=== PATIENT | female | born 1985 | race Caucasian/White ===

== ENCOUNTER 2017-12-27 11:11 | Outpatient (CLI) | END 2017-12-27 11:12 | disposition short-term general hospital (02) | LOC: AMBL 11:11 | PROVIDERS: ATTEND Internal Medicine | DX: L76.82 Other postprocedural complications of skin and subcutaneous tissue (principal); R60.0 Localized edema; Z98.890 Other specified postprocedural states ==

== ENCOUNTER 2018-05-02 16:44 | Emergency (ER) ==
[2018-05-02 16:54] VITALS: BP 131/79; TEMP 97.1; BMI 38.4
--- NOTE | 2018-05-02 17:03 | ED.PDOC ---
General ED Provider: Dr. ROMA FUENTES Chief Complaint: Back Pain Stated Complaint: LOW BACK PAIN Time Seen by Physician: 17:00 (SEEN WITH MAKENZIE AT ALL TIMES ) Mode of Arrival: Walk-In Information Source: Patient Exam Limitations: No limitations Primary Care Provider: MARINA MCCOY Nursing and Triage Documentation Reviewed and Agree: Yes Does patient meet sepsis criteria?: No System Inflammatory Response Syndrome: Not Applicable Sepsis Protocol: For patient's 13 years and over: Temp is 96.8 and below OR 101 and greater Pulse >90 BPM Resp >20/minute Acutely Altered Mental Status Are patient's symptoms suggestive of a new infection, such as: -Pneumonia -Skin, Soft Tissue -Endocarditis -UTI -Bone, Joint Infection -Implantable Device -Acute Abdominal Infection -Wound Infection -Meningitis -Blood Stream Catheter Infection -Unknown Musculoskeletal Complaint Exam - Back Pain Complaint/Exam Mechanism of Injury: Reports: No known trauma (MOVING FURNITURE ) Onset/Duration: 2 DAYS Symptoms Are: Still present Timing: Intermittent Episodes Lasting: Days Initial Severity: Moderate Current Severity: Moderate Location: Reports: Discrete Character: Reports: Aching Aggravating: Reports: Movements, Lifting, Bending, Walking Alleviating: Reports: Rest, Position Associated Signs and Symptoms: Denies: Swelling, Redness, Bruising, Fever, Weakness, Numbness, Tingling, Abdominal pain, Flank pain, Bladder incontinence, Bowel incontinence, Weight loss, Pain with weight bearing Related History: Reports: Similar episode TAD Risk Factors: Reports: None AAA Risk Factors: Reports: None Cauda Equina Risk Factors: Reports: None Epidural Abcess Risk Factors: Reports: None Related Surgical History: Reports: None Focal Tenderness: No Paraspinal Muscle Tenderness: No Paraspinal Muscle Spasm: No Scoliosis: No Lordosis: No Kyphosis: No SLR Test: Right Negative, Left Negative Hip Motion Testing Pain: Right Negative, Left Negative Focal Weakness: Present: None Focal Sensory Loss: Present: None Review of Systems - Review Of Systems Constitutional: Reports: No symptoms Eyes: Reports: No symptoms Ears, Nose, Mouth, Throat: Reports: No symptoms Respiratory: Reports: No symptoms Cardiac: Reports: No symptoms GI: Reports: No symptoms : Reports: No symptoms Musculoskeletal: Reports: Back pain Skin: Reports: No symptoms Neurological: Reports: No symptoms Endocrine: Reports: No symptoms Hematologic/Lymphatic: Reports: No symptoms All Other Systems: Reviewed and Negative Past Medical History - Past Medical History Previously Healthy: Yes Endocrine: Reports: None Cardiovascular: Reports: None Respiratory: Reports: None Hematological: Reports: None Gastrointestinal: Reports: None Genitourinary: Reports: None Neuro/Psych: Reports: None Musculoskeletal: Reports: None Cancer: Reports: None Last Menstrual Period: last week - Surgical History General Surgical History: Reports: None - Family History Family History: Reports: None - Social History Smoking Status: Never smoker Hx Substance Use: No Alcohol Screening: None Physical Exam - Physical Exam Appearance: Well-appearing, No pain distress, Well-nourished Eyes: LOPEZ, EOMI, Conjunctiva clear ENT: Ears normal, Nose normal, Oropharynx normal Respiratory: Airway patent, Breath sounds clear, Breath sounds equal, Respirations nonlabored Cardiovascular: RRR, Pulses normal, No rub, No murmur GI/: Soft, Nontender, No masses, Bowel sounds normal, No Organomegaly Musculoskeletal: Normal strength, ROM intact, No edema, No calf tenderness Skin: Warm, Dry, Normal color Neurological: Sensation intact, Motor intact, Reflexes intact, Cranial nerves intact, Alert, Oriented Psychiatric: Affect appropriate, Mood appropriate Critical Care Note - Critical Care Note Total Time (mins): 0 Course - Course Vital Signs: Temp Pulse Resp BP Pulse Ox 05/02/18 16:44 97.1 F L 61 20 131/79 98 Departure - Departure Time of Disposition: 17:02 Disposition: HOME SELF-CARE Discharge Problem: Low back pain Qualifiers: Chronicity: acute Back pain laterality: bilateral Sciatica presence: without sciatica Qualified Code(s): M54.5 - Low back pain Instructions: Back Pain (ED) Condition: Good Pt referred to PMD for follow-up: Yes IPMP verified?: No Additional Instructions: Please call your Family Physician as soon as possible to schedule a follow-up appointment. Prescriptions: Hydrocodone/Acetaminophen [[place] 10-325 Tablet] 1 each PO Q8HR #12 tablet Allergies/Adverse Reactions: Allergies No Known Allergies Allergy (Unverified 04/20/18 14:11) Home Medications: Ambulatory Orders Hydrocodone/Acetaminophen [[place] 10-325 Tablet] 1 each PO Q8HR #12 tablet
== END 2018-05-02 17:20 | disposition home or self-care (01) ==
LOC: ED 16:44
DX: M54.5 Low back pain (principal); X50.1XXA Overexertion from prolonged static or awkward postures, initial encounter
CPT/HCPCS: 99282

== ENCOUNTER 2018-05-07 07:04 | Outpatient (CLI) ==
--- NOTE | 2018-05-07 08:25 | MRI ---
EXAM: Lumbar spine MRI without contrast. HISTORY: Low back pain. COMPARISON: None. TECHNIQUE: Multiplanar, multisequence MR images were acquired of the lumbar spine without contrast. FINDINGS: The conus medullaris ends at L1 and has normal signal intensity. Five non-rib bearing lum bar vertebra are present. The vertebra are normal in height, AP alignment and intrinsic bone marrow signal. At L4-5, there is mild disc space narrowing, disc desiccation and mild irregularity along th e right lateral endplates, greatest involving the right L4 inferior endplate with two small developin g Schmorl's nodes with mixed modic type 1 and type 2 endplate changes. There is minor disc space mary rowing and central disc desiccation at L3-4. The partially visualized liver, spleen and kidneys are unremarkable. There are no paravertebral mass es. L1-2: The intervertebral disc is normal. L2-3: The intervertebral disc is normal. L3-4: There is a minor posterior disc bulge and endplate osteophytes with a small central annular te ar. This minimally effaces the ventral thecal sac without central canal stenosis. Neural foramina ar e patent. L4-5: There is a mild disc bulge and small central disc protrusion and annular tear that effaces the ventral thecal sac and minimally narrows the inferior neural foramina bilaterally. Minor bilateral facet arthropathy and mild ligamentum flavum hypertrophy is present. There is mild spinal stenosis a nd mild right and minor left neural foraminal stenosis. AP diameter of the thecal sac is 9.3 mm. L5-S1: There is a minor posterior disc bulge without central canal stenosis. Neural foramina are pa tent. IMPRESSION: 1. Minor lumbar degenerative spondylosis and mild spinal stenosis at L4-5. 2. Small central disc protrusion L4-5.
== END 2018-05-07 07:05 | disposition home or self-care (01) ==
LOC: RAD 07:04
PROVIDERS: ATTEND Nurse Practitioner Family
DX: Z00.00 Encounter for general adult medical examination without abnormal findings (principal); M54.5 Low back pain; M54.40 Lumbago with sciatica, unspecified side
CPT/HCPCS: 36415; 80053; 80061; 84443; 85025

== ENCOUNTER 2018-07-19 10:35 | Outpatient (CLI) ==
[2018-07-19 09:39] VITALS: BMI 38.4
== END 2018-07-19 10:36 | disposition home or self-care (01) ==
LOC: RHC-LAB 10:35
PROVIDERS: ATTEND Nurse Practitioner Family
DX: Z79.899 Other long term (current) drug therapy (principal)
CPT/HCPCS: 80306

== ENCOUNTER 2018-09-18 10:19 | Outpatient (CLI) | END 2018-09-18 10:20 | disposition home or self-care (01) | LOC: RHC-LAB 10:19 | PROVIDERS: ATTEND Nurse Practitioner Family | DX: J02.9 Acute pharyngitis, unspecified (principal); R50.9 Fever, unspecified | CPT/HCPCS: 87502; 87651 ==

== ENCOUNTER 2018-11-23 14:07 | Outpatient (CLI) | payer OTHER | END 2018-11-23 14:08 | disposition home or self-care (01) | LOC: RHC-LAB 14:07 | PROVIDERS: ATTEND Nurse Practitioner Family | DX: R10.11 Right upper quadrant pain (principal) | CPT/HCPCS: 36415; 80053; 81001; 83690; 85027 ==

== ENCOUNTER 2018-11-27 08:10 | Outpatient (CLI) | payer OTHER ==
--- NOTE | 2018-11-27 09:32 | US ---
EXAM: Limited abdominal ultrasound. History: Right upper quadrant abdominal pain. Technique: Multiple sonographic images through the abdomen were obtained. Color duplex Doppler was used to interrogate vascular flow. Findings: Visualized pancreas is unremarkable. The liver is not enlarged. No focal liver lesions i dentified sonographically. There is antegrade flow within the main portal vein. No abdominal ascite s. No shadowing gallstones. Gallbladder wall is not thickened. Common bile duct measures 0.4 cm in caliber. Limited visualization of the right kidney demonstrates no evidence for hydronephrosis. Impression: Unremarkable exam
== END 2018-11-27 08:11 | disposition home or self-care (01) ==
LOC: RAD 08:10
PROVIDERS: ATTEND Nurse Practitioner Family
DX: R10.11 Right upper quadrant pain (principal)

== ENCOUNTER 2018-12-06 09:00 | Outpatient (RCR) ==
--- NOTE | 2018-11-27 10:50 | RS.OPPTEV2 ---
Date of Note: 11/26/18 Visit #: 1 Number of visits approved by Insurance: pending Date of Evaluation: 11/26/18 Payer Source: Insurance (medicaid secondary) Surgery Performed?: No Treatment Diagnosis: low back pain with radiculopathy History of Condition/Mechanism of Injury:: pt reports she has had back pain for last several years but has gotten progressively worse in last 9 months. 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 States she has an 11 month old and has to pick her up, states thinks she is fine to do anything so she has to do all cleaning, summer child caregiver etc. Treatment Side (optional): N/A *Precautions: n/a Medical History Medical History: Unremarkable Surgical History: (12/20/17) Smoking Status: Former smoker Diagnostic Testing/Imaging:: lumbar MRI 05/07/18: minor lumbar degenerative spondylosis and mild spinal stenosis at L4-L5, small central disc protrusion L4- L5 Hx Home Medications: celebrex, tramadol, cyclobenzaprine Patient's Goals: decrease low back pain Pain Assessment - Pain Description Pain Location: low back pain Pain Description: Aching Current Pain Intensity: 3 Worst Pain Intensity: 9 Functional Outcome Measure Oswestry LBP: 31 - G Codes & Severity Modifier G Codes & Modifier: n/a Source of G Code score: n/a Observation - Observation Inspection: pt with tightness B hamstrings R worse than L Posture: Forward Head, Rounded Shoulders, Increased Thoracic Kyphosis, Decreased Lumbar Lordosis Handedness: Right Gait - Gait Pattern Gait Comments: pt amb with slight forward flexed posture General Range of Motion: BUE WFL's. BLE WFL's Muscle Strength: BUE 5/5. BLE hip flex 4/5, knee flex/ext 4+/5, ankle DF/PF 4/5 - ROM Lumbar Flexion: Hand reach to Mid-Thighs Sidebending to Left: Reach to Lateral Joint Line Sidebending to Right: Reach to Mid-thigh Lumbar Spine ROM Limitations: Soft Tissue Tightness, Muscle Weakness, Pain Comments: pt with limited lumbar ROM due to pain. pt with increased pain with flex as well as R lat flex. - Strength Trunk Extension: 4- Good- Trunk Flexion: 4- Good- Trunk Lateral Flexion: 4- Good- Trunk Rotation: 4- Good- - Special Tests DOMINGO Test: Negative Left, Negative Right SLR Test: Positive Left, Positive Right Seated Dural Stretch Test: Positive Left, Positive Right SI Joint Compression: Negative SI Joint Distraction: Negative Palpation Palpation Findings: Tenderness, Trigger Point, Muscle Guarding Comments:: pt presents with tenderness, muscle guarding lower lumbar paraspinal with trigger points noted in area of R SI. Sensation - Sensation Right Upper Extremity: Intact/Normal Left Upper Extremity: Intact/Normal Right Lower Extremity: Impaired Left Lower Extremity: Impaired Comments: pt presents with numbness B feet with radicular symptoms into B LE to knees and on R to foot Balance - Sitting Balance Static Sitting Balance: Normal Dynamic Sitting Balance: Normal - Standing Balance Static Standing Balance: Normal Dynamic Standing Balance: Normal - Heat/Cryotherapy Treatment: Cryotherapy (lumbar spine. Attempted both estim and ultrasound pt unable to tolerate either even with intensity at very low setting.) Interventions - Exercise/Activities/Manual Therapy Exercises/Activities: pt performed knee to chest, pelvic tilt, isometric hip add , resisted hip flex Manual Therapy: n/a HOME EXERCISE PROGRAM: pt given written HEP including: knee to chest, pelvic tilt, isometric hip add, resisted hip flex - Charges Timed Code Treatment Minutes: 51 Total Treatment Time: 62 Procedures billed for this date of service:: domingo garnett, CP EVALUATION COMPLEXITY LEVEL EVALUATION COMPLEXITY LEVEL: HISTORY: Low, EXAM OF BODY SYSTEMS: Low, CLINICAL PRESENTATION: Low, CLINICAL DECISION MAKING: Low Assessment Assessment: pt present with low back pain radiating into BLE, pt with hamstring tightness BLE. pt also with decreased lumbar ROM as well as decreased strength. pt presents with high pain profile and unable to tolerate estim or ultrasound. Feel pt would benefit from skilled PT for therex for core strengthening, stretching, as well as modalities to decreased pain. Patient Education: Home Exercise Program, Education of Plan of Care Rehab Potential: Good Short Term Goals Goal #1: pt independent with initial HEP Goal to be met by: 12/10/18 Goal #2: pt with decreased hamstring tightness BLE Goal to be met by: 12/10/18 Goal #3: Decreased low back pain < 4/10 Goal to be met by: 12/10/18 Goal #4: pt report no radicular symptoms into R foot Goal to be met by: 12/10/18 Inspector [employer]shop Detail Goals Goal #1: pt with no reports of radiating pain into BLE Goal to be met by: 12/28/18 Goal #2: pt report able to perform normal household duties with less pain Goal to be met by: 12/28/18 Goal #3: pt report able to sleep > 3-4 hours uninterrupted by pain Goal to be met by: 12/28/18 Plan - Treatment to be Provided Procedures: Therapeutic Exercises, Therapeutic Activity, Manual Therapy, Massage , Patient Education Modalities: Electrical Stimulation, Ultrasound/Phonophoresis, Cryotherapy, Hot Packs Other:: may try estim and ultrasound at a later date if pt able to tolerate. - Treatment Plan Frequency: 2 X week Duration: 4 weeks Dates of Inspector [employer] Detail Goals: 12/28/18 Expiration date of current Insurance Approval:: 12/28/18 - Treatment Code (1) Lumbar back pain with radiculopathy affecting lower extremity Code(s): M54.16 - RADICULOPATHY, LUMBAR REGION (2) Muscle tightness Code(s): M62.89 - OTHER SPECIFIED DISORDERS OF MUSCLE (3) Muscle weakness Code(s): M62.81 - MUSCLE WEAKNESS (GENERALIZED)
--- NOTE | 2018-11-29 13:41 | RS.OPPTDN ---
Subjective Date of Note: 11/29/18 Visit #: 2 Number of visits approved by Insurance: Pending Date of Evaluation: 11/26/18 Payer Source: Insurance (medicaid secondary) Treatment Diagnosis: low back pain with radiculopathy Current Subjective/complaints:: Reports modalities aggravated pain at the right lowback. States she does use ice at times but has difficulty with taking time to exercise. *Precautions: n/a Pain Assessment - Pain Description Pain Location: lowback Pain Description: Aching Current Pain Intensity: 3-4/10 Other Comments regarding Pain:: Reports always having back pain. States it can increase with little movements. - Heat/Cryotherapy Treatment: Cryotherapy ([id number] to the lowback to end treatment session. Patient in supine. ) Interventions - Exercise/Activities/Manual Therapy Exercises/Activities: Assisted hamstring, SKTC, and piriformis stretching bilaterally. Limited LTR. Performed pelvic tilt and alt hip flexion with 2# cuff weights. Isometric hip add and isometric ankle inversion, both with pillow. Green theraband resisted hip abd and red theraband resisted short LTR. Assisted SLR, 10reps each, no increased pain. Total minutes of Exercise: 28mins Manual Therapy: n/a HOME EXERCISE PROGRAM: pt given written HEP including: knee to chest, pelvic tilt, isometric hip add, resisted hip flex, green theraband hip abd, red theraband resisted LTR - Charges Timed Code Treatment Minutes: 28mins Total Treatment Time: 43mins Procedures billed for this date of service:: EX2, CP Assessment: Patient reporting no improvement with treatment of modalities. She seems to be motivated to work on HEP. Patient Education: Home Exercise Program Patient demonstrates compliance with HEP?: Yes Short Term Goals Goal #1: pt independent with initial HEP Goal to be met by: 12/10/18 Progress towards Goal:: Progressing Goal #2: pt with decreased hamstring tightness BLE Goal to be met by: 12/10/18 Goal #3: Decreased low back pain < 4/10 Goal to be met by: 12/10/18 Goal #4: pt report no radicular symptoms into R foot Goal to be met by: 12/10/18 Shelter Goals Goal #1: pt with no reports of radiating pain into BLE Goal to be met by: 12/28/18 Goal #2: pt report able to perform normal household duties with less pain Goal to be met by: 12/28/18 Goal #3: pt report able to sleep > 3-4 hours uninterrupted by pain Goal to be met by: 12/28/18 Plan Dates of Silo Man Goals: 12/28/18 Expiration date of current Insurance Approval:: 12/28/18 PLAN: Progress with trunk stability exercise to reduce pain and increase functional activity level.
--- NOTE | 2018-12-03 12:09 | RS.OPPTDN ---
Subjective Date of Note: 12/03/18 Visit #: 3 Number of visits approved by Insurance: na Date of Evaluation: 11/26/18 Payer Source: Insurance (medicaid secondary) Treatment Diagnosis: low back pain with radiculopathy Current Subjective/complaints:: Patient reports no change in back pain. States right foot pain is not as intense since starting Celebrex. Reports muscle stretch with traction starting to feel good, but nerve pain is constant. *Precautions: n/a Pain Assessment - Pain Description Pain Location: lowback, right LE radicular symptom to foot Current Pain Intensity: 3-4/10 with light activity Worst Pain Intensity: 5/10 following treatment - Traction Treatment Method: Mechanical, Intermittent, Lumbar Patient Position: Supine Amount of Force Applied: 80# decreased to 70# Hold Time: 30sec Rest Time: 5sec Duration of treatment: 9mins Traction Treatment Comment: Discussed addition of mechanical traction with Supervising PT and she was in agreement to add today. Interventions - Exercise/Activities/Manual Therapy Exercises/Activities: Discussion of HEP and general back safety with ADL's. Total minutes of Exercise: 4mins Manual Therapy: n/a HOME EXERCISE PROGRAM: pt given written HEP including: knee to chest, pelvic tilt, isometric hip add, resisted hip flex, green theraband hip abd, red theraband resisted LTR - Charges Timed Code Treatment Minutes: 13mins Total Treatment Time: 30mins Procedures billed for this date of service:: [place] (mechanical) Assessment: Attempted mechanical lumbar traction to reduce pain and radicular symptoms. Patient Education: Home Exercise Program Patient demonstrates compliance with HEP?: Yes Short Term Goals Goal #1: pt independent with initial HEP Goal to be met by: 12/10/18 Progress towards Goal:: Progressing Goal #2: pt with decreased hamstring tightness BLE Goal to be met by: 12/10/18 Goal #3: Decreased low back pain < 4/10 Goal to be met by: 12/10/18 Goal #4: pt report no radicular symptoms into R foot Goal to be met by: 12/10/18 [employer]per Mill Operator Goals Goal #1: pt with no reports of radiating pain into BLE Goal to be met by: 12/28/18 Goal #2: pt report able to perform normal household duties with less pain Goal to be met by: 12/28/18 Goal #3: pt report able to sleep > 3-4 hours uninterrupted by pain Goal to be met by: 12/28/18 Plan Dates of Skilled Nursing Goals: 12/28/18 Expiration date of current Insurance Approval:: 12/28/18 PLAN: Reassess patient response to treatment and determine need to continue. If patient continues to report no progress she will be referred back to physician.
--- NOTE | 2018-12-06 11:44 | RS.OPPTDN ---
Subjective Date of Note: 12/06/18 Visit #: 4 Number of visits approved by Insurance: na Date of Evaluation: 11/26/18 Payer Source: Insurance (medicaid secondary) Treatment Diagnosis: low back pain with radiculopathy Current Subjective/complaints:: Cameron reports she did have a good response to mechanical lumbar traction. States pain was much better until last night when she did some bending/lifting. States she does want to try traction again. *Precautions: n/a Pain Assessment - Pain Description Pain Location: lowback, right LE Other Comments regarding Pain:: Does not rate on 0-10 scale. States back pain has been low following last treatment, but increased yesterday after bending/ lifting. She did not report changes in right LE/foot symptoms. - Heat/Cryotherapy Treatment: Hot Pack ([id number] to lowback prior to mechanical traction. patient in supine. ) - Traction Treatment Method: Mechanical, Intermittent, Lumbar Patient Position: Supine Amount of Force Applied: 80# Hold Time: 35sec Rest Time: 5sec Duration of treatment: 15mins Interventions - Exercise/Activities/Manual Therapy Exercises/Activities: Discussion of HEP, no new additions. Manual Therapy: n/a HOME EXERCISE PROGRAM: pt given written HEP including: knee to chest, pelvic tilt, isometric hip add, resisted hip flex, green theraband hip abd, red theraband resisted LTR - Charges Timed Code Treatment Minutes: 5mins Total Treatment Time: 40mins Procedures billed for this date of service:: HP, [place] mechanical Assessment: Patient reporting a good response to mechanical lumbar traction. Patient Education: Home Exercise Program Patient demonstrates compliance with HEP?: Yes Short Term Goals Goal #1: pt independent with initial HEP Goal to be met by: 12/10/18 Progress towards Goal:: Met Goal #2: pt with decreased hamstring tightness BLE Goal to be met by: 12/10/18 Goal #3: Decreased low back pain < 4/10 Goal to be met by: 12/10/18 Progress towards Goal:: Progressing Goal #4: pt report no radicular symptoms into R foot Goal to be met by: 12/10/18 [facility] Goals Goal #1: pt with no reports of radiating pain into BLE Goal to be met by: 12/28/18 Goal #2: pt report able to perform normal household duties with less pain Goal to be met by: 12/28/18 Goal #3: pt report able to sleep > 3-4 hours uninterrupted by pain Goal to be met by: 12/28/18 Plan Dates of Fabricator Special Items Goals: 12/28/18 Expiration date of current Insurance Approval:: 12/28/18 PLAN: Progress mechanical lumbar traction and trunk stability exercise as tolerated.
== END 2018-12-09 23:59 ==
DX: M54.5 Low back pain (principal)

== ENCOUNTER 2018-12-27 10:00 | Outpatient (RCR) ==
--- NOTE | 2018-12-10 10:37 | RS.CXNS ---
Date of scheduled appointment: 12/10/18 Type: Cancel (Patient calls to cancel appointment. States she is sick today, but planning on keeping appointment later in the week.)
--- NOTE | 2018-12-13 10:06 | RS.CXNS ---
Date of scheduled appointment: 12/13/18 Type: Cancel (Patient calls to cancel, states she is still sick.)
--- NOTE | 2018-12-17 12:11 | RS.OPPTDN ---
Subjective Date of Note: 12/17/18 Visit #: 5 Number of visits approved by Insurance: na Date of Evaluation: 11/26/18 Payer Source: Insurance (medicaid secondary) Current Subjective/complaints:: Patient report lumbar traction has helped decrease her back pain. States she and her kids were sick last week, but she should be able to attend this week. Pain Assessment - Pain Description Pain Location: lowback Current Pain Intensity: low Other Comments regarding Pain:: Reports a "nerve sensation" with pull, but this seems to relieve her pain. - Heat/Cryotherapy Treatment: Hot Pack ([id number] to the lowback prior to mechanical lumbar traction. Patient in supine. ) - Traction Treatment Method: Mechanical, Intermittent, Lumbar Patient Position: Supine Amount of Force Applied: 100# Hold Time: 35sec Rest Time: 5sec Duration of treatment: 20mins Interventions - Exercise/Activities/Manual Therapy Exercises/Activities: Discussion of HEP, no new additions. Manual Therapy: na HOME EXERCISE PROGRAM: pt given written HEP including: knee to chest, pelvic tilt, isometric hip add, resisted hip flex, green theraband hip abd, red theraband resisted LTR - Charges Timed Code Treatment Minutes: 5mins Total Treatment Time: 45mins Procedures billed for this date of service:: HP, Traction mechanical Assessment: Patient reporting good response to mechanical traction. Patient Education: Home Exercise Program, Home Safety Comments: Discussion of HEP and safety with ADL's. Short Term Goals Goal #1: pt independent with initial HEP Goal to be met by: 12/10/18 Progress towards Goal:: Met Goal #2: pt with decreased hamstring tightness BLE Goal to be met by: 12/10/18 Progress towards Goal:: Progressing Goal #3: Decreased low back pain < 4/10 Goal to be met by: 12/10/18 Progress towards Goal:: Progressing Goal #4: pt report no radicular symptoms into R foot Goal to be met by: 12/10/18 Progress towards Goal:: Progressing Residential Goals Goal #1: pt with no reports of radiating pain into BLE Goal to be met by: 12/28/18 Progress towards goal: Progressing Goal #2: pt report able to perform normal household duties with less pain Goal to be met by: 12/28/18 Progress towards goal: Progressing Goal #3: pt report able to sleep > 3-4 hours uninterrupted by pain Goal to be met by: 12/28/18 Progress towards goal: Progressing Plan Dates of Compressor House Operator Goals: 12/28/18 Expiration date of current Insurance Approval:: 12/28/18 PLAN: Continue mechanical traction and progress exercise to redcue pain and increase functional activity level.
--- NOTE | 2018-12-21 15:38 | RS.OPPTDN ---
Subjective Date of Note: 12/21/18 Visit #: 6 Number of visits approved by Insurance: [id number] Date of Evaluation: 11/26/18 Payer Source: Insurance (medicaid secondary) Current Subjective/complaints:: Patient says that she feels treatment is only helping "minimally." She says that she has nerve pain that once was helped by Celebrex, but her insurance is not paying for it now and is trying to get it authorized. She says other treatments that were tried in PT were unaffective. She is fearful that her back may pop like it had done in the past and cause symptoms into her LE's . She is currently set up for an appt with Pain Management and is anxious about possible injections. - Heat/Cryotherapy Treatment: Hot Pack (mid to low back in supine x 20 mins prior to traction) - Traction Treatment Method: Mechanical, Intermittent, Lumbar Patient Position: Supine Amount of Force Applied: 105-107# Hold Time: 35 Rest Time: 5 Duration of treatment: 20 mins Traction Treatment Comment: 3 steps up Interventions - Exercise/Activities/Manual Therapy Exercises/Activities: Reviewed HEP, discussed diagnosis, anatomy, and proper body mechanics. Stayed with pt throughout majority of traction treatment. Manual Therapy: na HOME EXERCISE PROGRAM: pt given written HEP including: knee to chest, pelvic tilt, isometric hip add, resisted hip flex, green theraband hip abd, red theraband resisted LTR - Charges Timed Code Treatment Minutes: 6 Total Treatment Time: 46 Procedures billed for this date of service:: hp, mechanical traction Assessment: Patient continues with moderate LBP with symptoms of nerve pain to the bilateral LEs. Patient tolerates increase in traction poundage, but questionable improvement despite various treatments. May try to progress traction 1-2 more sessions and complete Functional Reassessment to verify any improvement. Patient Education: Education of diagnosis, Body/Joint mechanics, Home Exercise Program, Education of Plan of Care Patient demonstrates compliance with HEP?: Yes Short Term Goals Goal #1: pt independent with initial HEP Goal to be met by: 12/10/18 Progress towards Goal:: Met Goal #2: pt with decreased hamstring tightness BLE Goal to be met by: 12/10/18 Progress towards Goal:: Progressing Goal #3: Decreased low back pain < 4/10 Goal to be met by: 12/10/18 Progress towards Goal:: Progressing Goal #4: pt report no radicular symptoms into R foot Goal to be met by: 12/10/18 Progress towards Goal:: Progressing Residential Goals Goal #1: pt with no reports of radiating pain into BLE Goal to be met by: 12/28/18 Progress towards goal: Progressing Goal #2: pt report able to perform normal household duties with less pain Goal to be met by: 12/28/18 Progress towards goal: Progressing Goal #3: pt report able to sleep > 3-4 hours uninterrupted by pain Goal to be met by: 12/28/18 Progress towards goal: Progressing Plan Dates of Tie Bucker Goals: 12/28/18 Expiration date of current Insurance Approval:: 12/28/18 PLAN: Patient to continue x 1-2 more sessions, progress traction weight and complete Reassessment Index to verify improvement next week.
--- NOTE | 2018-12-25 09:41 | RS.CXNS ---
Date of scheduled appointment: 12/25/18 Type: Cancel (Patient calls to cancel appointment today. 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 Reschedules for later in the week.)
--- NOTE | 2018-12-27 11:52 | RS.OPPTDN ---
Subjective Date of Note: 12/27/18 Visit #: 7 Number of visits approved by Insurance: na Date of Evaluation: 11/26/18 Payer Source: Insurance (medicaid secondary) Current Subjective/complaints:: Reports increase in weight of traction last session aggravated her pain. States she would like to continue mechanical lumbar traction at prior weight setting. Patient reports she has been scheduled for injections at Pain Management. She again reports pain reduction during and immediately following mechanical traction, but no change overall. Pain Assessment - Pain Description Pain Location: lowback Current Pain Intensity: mild to mod Other Comments regarding Pain:: Patient reports pain is reduced during and immediately following mechanical traction. No consistent pain relief overall or beyond temporary reduction with traction. - Heat/Cryotherapy Treatment: Hot Pack ([id number] to the lumbar spine prior to TX. Patient in supine. ) - Traction Treatment Method: Mechanical, Intermittent, Lumbar Patient Position: Supine Amount of Force Applied: 100# Hold Time: 35sec Rest Time: 5sec Duration of treatment: 20mins Traction Treatment Comment: Attended patient during traction and finalized patient education of dx, body mechanics, and HEP. Interventions - Exercise/Activities/Manual Therapy Exercises/Activities: Discussion of HEP and safety with ADL's. Patient will continue basic HEP as instructed. Total minutes of Exercise: 5mins Manual Therapy: na HOME EXERCISE PROGRAM: pt given written HEP including: knee to chest, pelvic tilt, isometric hip add, resisted hip flex, green theraband hip abd, red theraband resisted LTR - Charges Timed Code Treatment Minutes: 5mins Total Treatment Time: 45mins Procedures billed for this date of service:: HP, TX mechanical Assessment: Patient has reported a temporary relief of pain with mechanical traction, but no overall relief of pain. She will continue basic HEP as instructed. Patient Education: Body/Joint mechanics, Home Exercise Program, Home Safety, Activity Modification, Education of Plan of Care Comments: Finalized patient education and HEP instructions. Patient demonstrates compliance with HEP?: Yes Short Term Goals Goal #1: pt independent with initial HEP Goal to be met by: 12/10/18 Progress towards Goal:: Met Goal #2: pt with decreased hamstring tightness BLE Goal to be met by: 12/10/18 Progress towards Goal:: Progressing Goal #3: Decreased low back pain < 4/10 Goal to be met by: 12/10/18 Progress towards Goal:: Not Met Comments:: Not consistently reduced. 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
--- NOTE | 2018-12-27 11:54 | RS.QUICKDC ---
Discharge from PT Date of Discharge: 12/27/18 Number of Visits: 7 Reason for Discharge: The patient attended 7 session, receiving mechanical lumbar traction on the last 5 visits. She reported pain relief during and immediatly following traction, but this was not long lasting. She was independent with HEP and was to continue. Discharged with HEP.
== END 2019-01-08 23:59 ==
DX: M54.5 Low back pain (principal); M54.16 Radiculopathy, lumbar region; M62.89 Other specified disorders of muscle; M62.81 Muscle weakness (generalized)